=== PATIENT | female | born 1940 | race Caucasian/White ===

== ENCOUNTER → 2017-03-09 | Outpatient (CLI) | payer MEDICARE ==
[~2017-03-09] MED LIST: ALPHA LIPOIC ACID; ASA 81MG; CALC-603 PO; CHOL100017 PO; CYCL32DR2; ESTR0.5T15 PO; FOLI-40 PO; LEVO25TA9 PO; MOME17SP7 NS; MULT-728 PO; NITR100C PO; UBID100C10 PO; [UNRECOGNIZED DRUG - CODE] PO
== END ==
LOC: WC.BC 10:56
PROVIDERS: ATTEND Obstetrics & Gynecology
DX: Z12.31 Encounter for screening mammogram for malignant neoplasm of breast (principal); M85.88 Other specified disorders of bone density and structure, other site; Z78.0 Asymptomatic menopausal state; Z90.711 Acquired absence of uterus with remaining cervical stump
CPT/HCPCS: 77063; 77080; G0202